=== PATIENT | female | born 1995 | race Caucasian/White ===

== ENCOUNTER 2017-11-20 19:12 | Inpatient (IN) | payer MEDICAID ==
[~2017-11-20] VITALS: Ht 162.6 cm; Wt 65.3 kg
[~2017-11-20 19:12] MED LIST: NO HOME MEDICATIONS
[2017-11-20 20:06] LABS: MEAN CELL VOLUME 86 fl (78-100); MEAN CORPUSCULAR HEMOGLOBIN 28 pg (27-31); MEAN CORPUSCULAR HGB CONC 33 g/dL (33-37); PLATELET COUNT 228 K/mm3 (130-400); RED BLOOD COUNT 4.68 M/mm3 (4.10-5.30); RED CELL DISTRIBUTION WIDTH 12.8 % (11.5-14.5); WHITE BLOOD COUNT 14.2 K/mm3 (4.8-10.8)
[2017-11-20 20:16] LABS: URINE APPEARANCE CLOUDY; URINE COLOR YELLOW
[2017-11-20 20:19] LABS: URINE BILIRUBIN NEGATIVE (NEGATIVE); URINE GLUCOSE NEGATIVE (NEGATIVE); URINE KETONE 1+ (NEGATIVE); URINE PROTEIN(semi-quant) 2+ mg/dL (NEGATIVE); URINE UROBILINOGEN NORMAL (NORMAL)
[2017-11-20 20:20] LABS: URINE BLOOD 50 ery/uL (NEGATIVE); URINE LEUKOCYTE ESTERASE 1+ (NEGATIVE); URINE NITRATE POSITIVE (NEGATIVE)
[2017-11-20 20:23] LABS: URINE WBC >50 /hpf (0-3)
[2017-11-20 20:23] LABS: ALBUMIN 4.2 g/dL (3.5-5.0); BUN/CREATININE RATIO 7.4 (6.0-26.0); CALCIUM 9.3 mg/dL (8.4-10.2); POTASSIUM 3.8 mmol/L (3.6-5.0); TOTAL BILIRUBIN 0.6 mg/dL (0.2-1.3); TOTAL PROTEIN 8.2 g/dL (6.3-8.2)
[2017-11-20 20:41] LABS: BAND 1 % (0-10); LYMPHOCYTE 12 % (20-51); MONOCYTE 4 % (3-10); NEUTROPHILS 83 % (42-75)
[2017-11-20 20:43] VITALS: BP 103/55
[2017-11-20 21:58] VITALS: BP 103/55
[2017-11-20 23:34] VITALS: BP 108/61
[2017-11-21 03:49] VITALS: BP 109/65
[2017-11-21 06:28] VITALS: BP 105/64
[2017-11-21 07:10] LABS: ALBUMIN 3.5 g/dL (3.5-5.0); BUN/CREATININE RATIO 5.8 (6.0-26.0); POTASSIUM 3.9 mmol/L (3.6-5.0); TOTAL BILIRUBIN 0.5 mg/dL (0.2-1.3); TOTAL PROTEIN 7.1 g/dL (6.3-8.2)
[2017-11-21 07:13] LABS: HEMATOCRIT 37.8 % (37.0-47.0); HEMOGLOBIN 11.7 g/dL (12.5-16.0); MEAN CELL VOLUME 87 fl (78-100); MEAN CORPUSCULAR HEMOGLOBIN 27 pg (27-31); MEAN CORPUSCULAR HGB CONC 31 g/dL (33-37); MEAN PLATELET VOLUME 11.4 fl (7.4-10.4); PLATELET COUNT 200 K/mm3 (130-400); RED BLOOD COUNT 4.37 M/mm3 (4.10-5.30); WHITE BLOOD COUNT 15.5 K/mm3 (4.8-10.8)
[2017-11-21 07:33] LABS: BAND 3 % (0-10); LYMPHOCYTE 5 % (20-51); MONOCYTE 8 % (3-10); NEUTROPHILS 84 % (42-75)
[2017-11-21 11:03] VITALS: BP 104/57
[2017-11-21 15:16] VITALS: BP 99/46
[2017-11-21 18:20] VITALS: BP 101/64
[2017-11-21 23:11] VITALS: BP 116/65
[2017-11-22 03:13] VITALS: BP 96/54
[2017-11-22 06:09] VITALS: BP 93/60
[2017-11-22 06:29] LABS: EOS % 0.1 % (1.0-5.0); HEMATOCRIT 31.4 % (37.0-47.0); HEMOGLOBIN 9.9 g/dL (12.5-16.0); LYMPH# 2.2 (1.50-4.00); MEAN CELL VOLUME 88 fl (78-100); MEAN CORPUSCULAR HEMOGLOBIN 28 pg (27-31); MEAN CORPUSCULAR HGB CONC 32 g/dL (33-37); MONO # 1.2 (0.20-0.80); NEU # 6.8 (1.40-6.50); PLATELET COUNT 138 K/mm3 (130-400); RED BLOOD COUNT 3.58 M/mm3 (4.10-5.30); RED CELL DISTRIBUTION WIDTH 12.8 % (11.5-14.5); WHITE BLOOD COUNT 10.2 K/mm3 (4.8-10.8)
[2017-11-22 06:49] LABS: BUN/CREATININE RATIO 5.4 (6.0-26.0); CALCIUM 7.7 mg/dL (8.4-10.2); POTASSIUM 3.7 mmol/L (3.6-5.0)
[2017-11-22 11:29] VITALS: BP 100/56
[2017-11-22 15:04] VITALS: BP 110/69
[2017-11-22 18:39] VITALS: BP 98/56
[2017-11-22 22:38] VITALS: BP 111/74
[2017-11-23 00:22] LABS: TRANSFERRIN 152 mg/dL (192-382)
[2017-11-23 03:15] VITALS: BP 115/75
[2017-11-23 06:12] VITALS: BP 106/60
[2017-11-23 08:20] LABS: EOS % 0.1 % (1.0-5.0); HEMATOCRIT 33.5 % (37.0-47.0); HEMOGLOBIN 10.7 g/dL (12.5-16.0); LYMPH# 1.4 (1.50-4.00); MEAN CELL VOLUME 86 fl (78-100); MEAN CORPUSCULAR HEMOGLOBIN 28 pg (27-31); MEAN CORPUSCULAR HGB CONC 32 g/dL (33-37); MEAN PLATELET VOLUME 11.4 fl (7.4-10.4); MONO # 0.6 (0.20-0.80); NEU # 5.6 (1.40-6.50); PLATELET COUNT 159 K/mm3 (130-400); RED BLOOD COUNT 3.88 M/mm3 (4.10-5.30); RED CELL DISTRIBUTION WIDTH 12.8 % (11.5-14.5); WHITE BLOOD COUNT 7.6 K/mm3 (4.8-10.8)
[2017-11-23 08:21] LABS: BUN/CREATININE RATIO 5.6 (6.0-26.0); CALCIUM 8.6 mg/dL (8.4-10.2); POTASSIUM 3.9 mmol/L (3.6-5.0)
[2017-11-23 11:34] VITALS: BP 109/72
[2017-11-23] MEDS ORDERED: SEPTRA DS 8001 TAB PO (12:44)
== END 2017-11-23 13:17 | disposition home or self-care (01) | DRG 690 ==
LOC: ED 19:12 → MED/SURG 20:43
PROVIDERS: Physician Assistant; ADMIT Nurse Practitioner Primary Care
DX: N10 Acute pyelonephritis (principal); D64.9 Anemia, unspecified; B96.20 Unspecified Escherichia coli [E. coli] as the cause of diseases classified elsewhere
CPT/HCPCS: J1200; J1956; J2270; J2405; J2550; J7030; Q9967

== ENCOUNTER 2022-10-31 11:01 | Outpatient (RCR) | payer OTHER ==
[~2022-10-31 11:01] MED LIST changes: +SEPTRA DS 8001 TAB PO
== END 2022-11-20 | disposition home or self-care (01) ==
LOC: OT → EDSTATUS 11:23
DX: S51.801D Unspecified open wound of right forearm, subsequent encounter (principal); L03.113 Cellulitis of right upper limb; G56.31 Lesion of radial nerve, right upper limb; Y04.1XXD Assault by human bite, subsequent encounter

== ENCOUNTER → 2023-09-23 | Outpatient (CLI) | payer MEDICAID | LOC: RAD 09:42 | DX: S00.83XA Contusion of other part of head, initial encounter (principal); S20.212A Contusion of left front wall of thorax, initial encounter ==

== ENCOUNTER 2024-11-12 08:32 | Inpatient (IN) | payer SELFPAY ==
[~2024-11-12] VITALS: Ht 157.5 cm; Wt 64.9 kg
[2024-11-12] MEDS ORDERED: Albuterol/Ipratropium 3 MG-0.5 MG/3 ML Neb Soln IH ONE (09:00)
[2024-11-12] MEDS ORDERED: NS 1,000 ML IV SCH (09:00)
[2024-11-12] MEDS ORDERED: BENZONATATE200 MG PO (09:07)
[2024-11-12 09:09] LABS: BASO # 0.01 K/mm3 (0.02-0.10); EOS # 0.01 K/mm3 (0.04-0.40); EOS % 0.1 % (1.0-5.0); HEMATOCRIT 35.7 % (37.0-47.0); HEMOGLOBIN 10.9 g/dL (12.5-16.0); LYMPH# 0.87 K/mm3 (1.50-4.00); MEAN CELL VOLUME 79 fl (78-100); MEAN CORPUSCULAR HEMOGLOBIN 24 pg (27-31); MEAN CORPUSCULAR HGB CONC 31 g/dL (33-37); MEAN PLATELET VOLUME 10.6 fl (7.4-10.4); MONO # 0.48 K/mm3 (0.20-0.80); NEU # 9.45 K/mm3 (1.40-6.50); PLATELET COUNT 503 K/mm3 (130-400); RED BLOOD COUNT 4.54 M/mm3 (4.10-5.30); RED CELL DISTRIBUTION WIDTH 14.5 % (11.5-14.5)
[2024-11-12 09:20] LABS: ALBUMIN 3.4 g/dL (3.5-5.0)
[2024-11-12 09:21] LABS: CALCIUM 8.9 mg/dL (8.3-10.5)
[2024-11-12 09:23] LABS: TOTAL PROTEIN 7.6 g/dL (6.4-8.3)
[2024-11-12 09:24] LABS: TOTAL BILIRUBIN 0.4 mg/dL (0.2-1.2)
[2024-11-12 09:38] LABS: D-DIMER 1.99 mg/L FEU (0.15-0.50)
[2024-11-12] MEDS ORDERED: Iohexol 350 - 100 ML VIAL IV ONE (09:50)
[2024-11-12] MEDS ORDERED: NS 100 ML IV ONE (09:50)
[2024-11-12] MEDS ORDERED: Budesonide Neb Soln 0.5 MG/2 ML AMP IH ONE (10:15)
[2024-11-12] MEDS ORDERED: cefTRIAXone 1 G in Water For Injection,Sterile 10 ML IV ONE (10:45)
[2024-11-12] MEDS ORDERED: Acetaminophen 500 MG TAB PO PRN (11:00)
[2024-11-12] MEDS ORDERED: Polyethylene Glycol 3350 Powder 17 GM PACKET PO PRN (11:00)
[2024-11-12] MEDS ORDERED: Azithromycin 500 MG in NS 250 ML IV ONE (11:15)
[2024-11-12] MEDS ORDERED: Albuterol/Ipratropium 3 MG-0.5 MG/3 ML Neb Soln IH PRN (11:15)
[2024-11-12 11:34] VITALS: BP 106/71
[2024-11-12] MEDS ORDERED: Albuterol/Ipratropium 3 MG-0.5 MG/3 ML Neb Soln IH SCH (13:00)
[2024-11-12 19:00] VITALS: BP 101/64
--- NOTE | 2024-11-12 19:05 | NUR ---
REPORT GIVEN TO JAQUELIN JIMENEZ
[2024-11-12] MEDS ORDERED: Docusate Sodium 100 MG CAP PO SCH (21:00)
[2024-11-12 23:25] VITALS: BP 93/63
[2024-11-13 03:02] VITALS: BP 99/67
[2024-11-13 06:53] LABS: BASO # 0.01 K/mm3 (0.02-0.10); EOS # 0.06 K/mm3 (0.04-0.40); EOS % 0.8 % (1.0-5.0); HEMATOCRIT 31.3 % (37.0-47.0); HEMOGLOBIN 9.6 g/dL (12.5-16.0); LYMPH# 0.91 K/mm3 (1.50-4.00); MEAN CELL VOLUME 80 fl (78-100); MEAN CORPUSCULAR HEMOGLOBIN 24 pg (27-31); MEAN CORPUSCULAR HGB CONC 31 g/dL (33-37); MEAN PLATELET VOLUME 10.3 fl (7.4-10.4); MONO # 0.44 K/mm3 (0.20-0.80); NEU # 6.26 K/mm3 (1.40-6.50); PLATELET COUNT 426 K/mm3 (130-400); RED BLOOD COUNT 3.93 M/mm3 (4.10-5.30); RED CELL DISTRIBUTION WIDTH 14.8 % (11.5-14.5); WHITE BLOOD COUNT 7.8 K/mm3 (4.8-10.8)
[2024-11-13 06:56] LABS: CALCIUM 8.3 mg/dL (8.3-10.5)
[2024-11-13 06:57] LABS: TOTAL PROTEIN 6.6 g/dL (6.4-8.3)
[2024-11-13 06:59] LABS: TOTAL BILIRUBIN 0.3 mg/dL (0.2-1.2)
--- NOTE | 2024-11-13 07:56 | NUR ---
PT. STATES SHE IS FEELING A LITTLE BETTER TODAY. O2 TITRATED TO 2L PER NC AT THIS TIME.
[2024-11-13 08:13] VITALS: BP 111/72
[2024-11-13] MEDS ORDERED: Azithromycin 250 MG TAB PO SCH (09:00)
[2024-11-13] MEDS ORDERED: Cefdinir 300 MG CAP PO SCH (09:00)
[2024-11-13 11:20] VITALS: BP 97/62
--- NOTE | 2024-11-13 13:43 | NUR ---
PT. REQUESTED TO TAKE A SHOWER, UP TO SHOWER WITH O2 TITRATED UP TO 2L PER NC. ONCE BACK TO BED INCREASED WOB AND O2 SAT 90% AT THE 2L. TITRATED O2 TO 3L PER NC. AFTER 15MINS. NOTED PT. RETURN TO NORMAL WOB.
[2024-11-13] MEDS ORDERED: methylPREDNISolone Sod Succ 125 MG/2 ML VIAL IV ONE (14:15)
[2024-11-13 15:00] VITALS: BP 116/77
--- NOTE | 2024-11-13 16:53 | NUR ---
PT. MAINTAINING O2 SAT 92-94% ON 3L PER NC. HAS RESTED IN BED THIS AFTERNOON. TELE: NSR IN THE 70S. NOT ABLE TO WEAN O2 FOLLOWING SHOWER THIS AFTERNOON.
[2024-11-13 19:00] VITALS: BP 104/70
[2024-11-13] MEDS ORDERED: Benzonatate 100 MG CAP PO PRN (19:00)
[2024-11-13] MEDS ORDERED: guaiFENesin/Dextromethorphan Oral Soln 200-20 MG/10 ML UD PO SCH (21:00)
[2024-11-13 23:00] VITALS: BP 97/63
[2024-11-14 03:00] VITALS: BP 108/71
[2024-11-14 07:00] VITALS: BP 117/71
--- NOTE | 2024-11-14 08:48 | NUR ---
A&Ox4, 2L per NC, c/o EL from coughing. PRN given, as directed. Lung CTA, bilateral upper and lower lobes prior to breathing tx. Reports she slept very well last night compared to following nights. Reports increased productive cough with thick sputum. Sitting up in bed, resting quietly. Swallowed pills whole with water. Bed in lowest and locked position. Call light within reach.
[2024-11-14] MEDS ORDERED: predniSONE 20 MG TAB PO SCH (09:00)
[2024-11-14 12:48] VITALS: BP 108/72; BP 95/60
--- NOTE | 2024-11-14 12:57 | NUR ---
Reduced O2 to 2L per NC, PS02 96%, tolerating well
--- NOTE | 2024-11-14 14:32 | NUR ---
PS02 88-90% on 2L per NC. Reports feeling light headed. Increased O2 to 3L per NC. 94% on 3L per NC, P 84. Resting quietly in bed. Bed in lowest and locked position. Call light within reach.
[2024-11-14 19:00] VITALS: BP 98/65
--- NOTE | 2024-11-14 19:00 | NUR ---
RECEIVED REPORT FROM JAQUELIN BEGUM
--- NOTE | 2024-11-14 22:03 | NUR ---
PATIJANINE A&O X 4. AMBULATES TO AND FROM TOILET, GAIT STEADY. CONTINUES WITH O2 PER NC AT 3L. REPORTS HEADACHE 05/30, APAP GIVEN WITH RELIEF. COUGHS WITH DEEP BREATHING AND USING IS. HR REGULAR, NO EDEMA. LAST BM 11/13/24
[2024-11-14 23:00] VITALS: BP 117/78
[2024-11-15 03:00] VITALS: BP 111/77
--- NOTE | 2024-11-15 05:40 | NUR ---
PATIENT RESTING QUIELTY IN BED. TELE ON SHOWING NSR WITH RATE 60. CALL LIGHT IN REACH
[2024-11-15 08:22] VITALS: BP 107/72
[2024-11-15 08:26] LABS: HEMATOCRIT 32.9 % (37.0-47.0); MEAN CELL VOLUME 80 fl (78-100); MEAN CORPUSCULAR HEMOGLOBIN 24 pg (27-31); MEAN CORPUSCULAR HGB CONC 30 g/dL (33-37); RED BLOOD COUNT 4.09 M/mm3 (4.10-5.30); WHITE BLOOD COUNT 9.6 K/mm3 (4.8-10.8)
[2024-11-15 08:29] LABS: PLATELET COUNT 633 K/mm3 (130-400)
[2024-11-15 08:35] LABS: CALCIUM 8.3 mg/dL (8.3-10.5)
[2024-11-15 08:36] LABS: TOTAL PROTEIN 6.8 g/dL (6.4-8.3)
[2024-11-15 08:38] LABS: TOTAL BILIRUBIN 0.2 mg/dL (0.2-1.2)
[2024-11-15 08:45] LABS: LYMPHOCYTE 27 % (20-51); MONOCYTE 6 % (3-10); NEUTROPHILS 66 % (42-75)
--- NOTE | 2024-11-15 10:19 | NUR ---
PT STATES SHE IS FEELING MUCH BETTER TODAY THAN PREVIOUS. PER NIGHT NURSE PT WAS NOT WANTING TO USE IS OR FLUTTER VALVE, DR BALL DISCUSSED AGAIN WITH PATIENT THE IMPORTANCE OF USING BOTH DEVICES, PT VERBALIZES UNDERSTANDING AND REPORTS SHE WILL USE THEM. REPORTING RIB PAIN FROM COUGHING. REMAINS ON 3L O2 VIA NASAL CANNULA, HAVE NOT BEEN ABLE TO TITRATE DOWN THIS MORNING.
[2024-11-15] MEDS ORDERED: Ketorolac 30 MG/ML VIAL IV PRN (10:30)
[2024-11-15 11:27] VITALS: BP 97/62
[2024-11-15 15:33] VITALS: BP 93/66
--- NOTE | 2024-11-15 17:55 | NUR ---
ATTEMPTED TO WEAN OXYGEN DOWN TODAY, BUT WAS UNSUCCESSFUL. PT ABLE TO TOLERATE IS AND FLUTTER VALVE BETTER TODAY WITH USE OF TORADOL.
[2024-11-15 19:00] VITALS: BP 100/64
--- NOTE | 2024-11-15 19:03 | NUR ---
REPORT GIVEN TO JAQUELIN JIMENEZ
[2024-11-15 23:00] VITALS: BP 108/73
[2024-11-16 03:00] VITALS: BP 113/71
[2024-11-16 06:04] LABS: BASO # 0.02 K/mm3 (0.02-0.10); EOS # 0.03 K/mm3 (0.04-0.40); EOS % 0.3 % (1.0-5.0); HEMATOCRIT 33.3 % (37.0-47.0); HEMOGLOBIN 9.8 g/dL (12.5-16.0); MEAN CELL VOLUME 82 fl (78-100); MEAN CORPUSCULAR HEMOGLOBIN 24 pg (27-31); MEAN CORPUSCULAR HGB CONC 29 g/dL (33-37); MEAN PLATELET VOLUME 10.3 fl (7.4-10.4); MONO # 0.34 K/mm3 (0.20-0.80); NEU # 6.03 K/mm3 (1.40-6.50); PLATELET COUNT 671 K/mm3 (130-400); RED BLOOD COUNT 4.07 M/mm3 (4.10-5.30); RED CELL DISTRIBUTION WIDTH 15.2 % (11.5-14.5); WHITE BLOOD COUNT 9.3 K/mm3 (4.8-10.8)
[2024-11-16 06:10] LABS: ALBUMIN 3.1 g/dL (3.5-5.0)
[2024-11-16 06:11] LABS: CALCIUM 8.8 mg/dL (8.3-10.5)
[2024-11-16 06:13] LABS: TOTAL PROTEIN 6.7 g/dL (6.4-8.3)
[2024-11-16 06:14] LABS: TOTAL BILIRUBIN 0.2 mg/dL (0.2-1.2)
--- NOTE | 2024-11-16 06:45 | NUR ---
PTS OXYGEN STARTED DIPPING BELOW 90% AND STAYING BELOW 90% ON 3L NC. DR BALL NOTIFIED. PT PUT ON 6L VIA SIMPLE MASK AND STILL IS HAVING TROUBLE MAINTAINING 88%
[2024-11-16 07:05] VITALS: BP 104/67
[2024-11-16] MEDS ORDERED: Cefepime 2 G in Water For Injection,Sterile 20 ML IV ONE (07:15)
--- NOTE | 2024-11-16 07:30 | NUR ---
PT. TO XRAY FOR CXR AT THIS TIME. REMAINS ON 15L NRB. REPORTS THAT SHE IS FEELING OKAY, NO NOTED INCREASED WOB AT THIS TIME.
[2024-11-16 08:25] VITALS: BP 114/75
--- NOTE | 2024-11-16 09:00 | NUR ---
PT. TRANSFERRED AT THIS TIME WITH [facility]. REMAINS ON 15L NRB WITH SATS IN THE MID TO UPPER 90S. SEE TRANSFER PAPERWORK FOR ADDITIONAL DETAILS.
[2024-11-16 09:44] VITALS: BP 114/75
== END 2024-11-16 09:05 | DRG 193 ==
LOC: ED 08:32 → MED/SURG 10:56
PROVIDERS: Nurse Practitioner; ADMIT Family Medicine
DX: J18.9 Pneumonia, unspecified organism (principal); J96.01 Acute respiratory failure with hypoxia; E87.3 Alkalosis; R79.89 Other specified abnormal findings of blood chemistry; R74.01 Elevation of levels of liver transaminase levels
CPT/HCPCS: J0456; J0692; J0696; J1650; J1720; J1885; J2919; J3370; J7030; J7050; J7512; Q9967

== ENCOUNTER → 2024-11-24 | Outpatient (CLI) | payer SELFPAY ==
[~2024-11-24] MED LIST changes: +BENZONATATE200 MG PO
== END ==
LOC: RAD 15:10
DX: J96.01 Acute respiratory failure with hypoxia (principal)